=== PATIENT | female | born 1975 | race Caucasian/White ===

== ENCOUNTER 2019-01-07 23:49 | Emergency (ER) | payer BC ==
[~2019-01-07] VITALS: Ht 162.6 cm; Wt 95.3 kg
[2019-01-07 23:55] VITALS: BP 130/82
--- NOTE | 2019-01-08 00:26 | NUR ---
PT AMBULATED TO ER BED 06
--- NOTE | 2019-01-08 00:30 | NUR ---
PT BIBA C/O DYSPHAGIA. PT STATES SHE WAS WATCHING TV, DIZZINESS UPON STANDING, TINGLING TO LEFT ARM, PT STATES PT WAS SLURRING HER WORDS, LASTED FOR ~10 MINUTES. DENIES TRAUMA OR LOC. --DENIES N/V/D, CP, SOB AT THIS TIME. --HAND STATISTICAL CONSULTANT STRONG, AND EQUAL BL. PERRLA. PMH: DENIES RX: DENIES
[2019-01-08 01:53] LABS: BASOPHILS % (AUTO) 0.4 % (0.0-2.0); EOSINOPHILS # (AUTO) 0.1 K/uL (0-0.4); EOSINOPHILS % (AUTO) 0.8 % (0.0-4.0); HEMATOCRIT 33.9 % (36-48); HEMOGLOBIN 10.5 g/dL (12.0-16.0); LYMPHOCYTES # (AUTO) 1.3 K/uL (2.5-16.5); LYMPHOCYTES % (AUTO) 12.2 % (20.5-51.1); MEAN CORPUSCULAR HEMOGLOBIN 23 pg (27-31); MEAN CORPUSCULAR HGB CONC 31 g/dL (33-37); MEAN CORPUSCULAR VOLUME 74.9 fL (80-94); MONOCYTES # (AUTO) 0.5 K/uL (0.8-1.0); MONOCYTES % (AUTO) 4.9 % (1.7-9.3); NEUTROPHILS # (AUTO) 8.6 K/uL (1.8-7.7); NEUTROPHILS % (AUTO) 81.7 % (42.2-75.2); PLATELET COUNT (AUTO) 396 K/uL (140-450); RED BLOOD CELL COUNT(AUTO) 4.52 MIL/uL (4.20-5.40); RED CELL DISTRIBUTION WIDTH 17.2 % (11.6-13.7); WHITE BLOOD COUNT (AUTO) 10.5 K/uL (4.8-10.8)
[2019-01-08 02:09] LABS: CARBON DIOXIDE 28.6 mmol/L (21-32); CREATININE 0.9 mg/dL (0.6-1.3); POTASSIUM 3.6 mmol/L (3.5-5.1)
[2019-01-08 02:19] LABS: ALBUMIN 3.3 g/dL (3.4-5.0); TOTAL BILIRUBIN 0.2 mg/dL (0.0-1.0)
--- NOTE | 2019-01-08 02:23 | NUR ---
PT TO CT VIA WHEELCHAIR BY TECH.
--- NOTE | 2019-01-08 02:32 | NUR ---
PT RETURNED FROM CT AT THIS TIME
[2019-01-08 02:40] LABS: APPEARANCE,URINE CLEAR (CLEAR); BILIRUBIN,URINE NEGATIVE (NEGATIVE); BLOOD, URINE NEGATIVE (NEGATIVE); COLOR,URINE YELLOW (YELLOW); LEUKOCYTE ESTERASE ,URINE NEGATIVE (NEGATIVE); NITRITE, URINE NEGATIVE (NEGATIVE); PH,URINE 6.5 (5.0-9.0); UGLUCOSE NEGATIVE (NEGATIVE)
[2019-01-08 02:47] LABS: BARBITURATE, URINE NEG. ng/ml (NEG <=200); BENZODIAZEPINE, URINE NEG. ng/mL (NEG <=200); CANNABINOID, URINE NEG. ng/mL (NEG <=50); COCAINE, URINE NEG. ng/mL (NEG <=300); OPIATE, URINE NEG. ng/mL (NEG <=2000); PHENCYCLIDINE SCREEN,URINE NEG. ng/mL (NEG <=25)
[2019-01-08 03:07] VITALS: BP 115/61
--- NOTE | 2019-01-08 03:08 | NUR ---
Patient discharged with v/s stable. Written and verbal after care instructions given and explained. Patient verbalized understanding. Ambulatory with steady gait. All questions addressed prior to discharge. Advised to follow up with PMD.
== END 2019-01-08 03:08 | disposition home or self-care (01) ==
LOC: MED 23:49
DX: F43.9 Reaction to severe stress, unspecified (principal); R20.2 Paresthesia of skin; R13.10 Dysphagia, unspecified
CPT/HCPCS: 36415; 70450; 71045; 80053; 80305; 81003; 81025; 84484; 85025; 99284